=== PATIENT | male | born 1995 | race American Indian/Alaskan Native ===

== ENCOUNTER 2018-04-01 11:32 | Observation (INO) | payer BC ==
[2018-04-01] MEDS ORDERED: Oxycodone/Acetaminophen 5/325 mg Tab PO STA (11:40)
[2018-04-01] MEDS ORDERED: Oxycodone/Acetaminophen 5/325 mg Tab ONE (11:55)
[2018-04-01] MEDS ORDERED: Lidocaine 1% Inj (20ml) INFIL STA (11:58)
--- NOTE | 2018-04-01 12:20 | C.PDOC ---
History Of Present Illness 22 y/o male presents to the ER for evaluation of right wrist pain/swelling. Patient states he was playing soccer and slid, fell onto the right side of his body and craed the fall with his forearm. Associated sx includes tingling se nsation in the 4th and 5th digit. Pt denies head injury, LOC, neck pain, other injuries. Pt notes he is left hand dominant. Time Seen by Provider: 04/01/18 11:55 Chief Complaint (Nursing): Upper Extremity Problem/Injury History Per: Patient History/Exam Limitations: no limitations Onset/Duration Of Symptoms: Hrs Current Symptoms Are (Timing): Still Present Quality: "Pain" Severity: Moderate Exacerbating Factor(s): Movement Past Medical History Reviewed: Historical Data, Nursing Documentation, Vital Signs Vital Signs: Last Vital Signs Temp 97.5 F L 04/01/18 12:09 Pulse 91 H 04/01/18 12:09 Resp 20 04/01/18 12:09 BP 129/90 04/01/18 12:09 Pulse Ox 96 04/01/18 12:09 - Medical History PMH: No Chronic Diseases Family History: States: No Known Family Hx - Social History Hx Alcohol Use: Yes Hx Substance Use: No - Immunization History Hx Tetanus Toxoid Vaccination: No Hx Influenza Vaccination: Yes Hx Pneumococcal Vaccination: No Review Of Systems Constitutional: Negative for: Fever, Other (head injury ) Cardiovascular: Negative for: Chest Pain, Palpitations Respiratory: Negative for: Shortness of Breath Musculoskeletal: Positive for: Other (right wrist pain ) Neurological: Positive for: Other (tingling sensation on 4th and 5th digit of rigth hand; no LOC). Negative for: Numbness, Headache, Dizziness Physical Exam - Physical Exam Appears: Well, Non-toxic, In Acute Distress (in moderate pain ) Skin: Warm, Dry Head: Atraumatic, Normacephalic, No Tenderness, No Swelling, No Abrasion, No Laceration Eye(s): bilateral: Normal Inspection Oral Mucosa: Moist Cardiovascular: Rhythm Regular Respiratory: Normal Breath Sounds, No Rales, No Rhonchi, No Wheezing Extremity: Tenderness (mild elbow diffuse TTP; no deformity; no shoulder tenderness to palpation), Capillary Refill (<2 in all digits ), Deformity (right wrist/distal forearm dinner fork defomity, (+) TTP), No Swelling (of right elbow ) Pulses: Right Radial: Normal Neurological/Psych: Oriented x3, Normal Speech, Normal Cognition, Normal Sensation (in all digits ) ED Course And Treatment - Laboratory Results Result Diagrams: 04/01/18 13:55 04/01/18 13:55 O2 Sat by Pulse Oximetry: 96 (RA) Pulse Ox Interpretation: Normal - Other Rad Elbow X-Ray: Read By Radiologist Interpretation: Accession No. : [id number]. Patient Name / ID : HARI Stack / [id number]. Exam Date : 04/01/2018 11:58:47 ( Approved ). Study Comment : Sex / Age : M / 22Y. Creator : Dominic Hitchcock MD. Dictator : Dominic Hitchcock MD. Regulatory Consultant : Washer Cutter : Dominic Hitchcock MD. Approver2 : Report Date : 04/01/2018 12:42:24. My Comment : * . Right elbow two views. HISTORY: Pain. Comparison: None available. Findings: Please note only two views of the elbow were obtained. No evidence of acute displaced fracture dislocation. Impression: Please note only two views of the elbow were obtained. No evidence of acute displaced fracture dislocation. If pain persists, consider MRI. Right wrist X-Ray: Read By Radiologist Interpretation: Accession No. : [id number]. Patient Name / ID : HARI Stack / [id number]. Exam Date : 04/01/2018 11:57:18 ( Approved ). Study Comment : Sex / Age : M / 22Y. Creator : Dominic Hitchcock MD. Dictator : Dominic Hitchcock MD. Regulatory Consultant : Washer Cutter : Dominic Hitchcock MD. Approver2 : Report Date : 04/01/2018 12:40:37. My Comment : . Right wrist four views. HISTORY: Fracture. Comparison: None available. Findings: Transverse oblique complete fracture through the distal medullary cavity of the radius. Radial sided distraction measuring 2.3 centimeters of the distal fracture fragment. Mild comminution at the fracture site. Suggestion of a displaced ulnar styloid fracture on the oblique view. Clinical correlation. Impression: Transverse oblique complete fracture through the distal medullary cavity of the radius. Radial sided distraction measuring 2.3 centimeters of the distal fracture fragment. Mild comminution at the fracture site. Suggestion of a displaced ulnar styloid fracture on the oblique view. Clinical correlation. postreduction Xrays X-Ray: Interpreted by Me, Viewed By Me (improved alignment of distal radius, still mildly displaced. ) Progress Note: Xrays of right wrist and right elbow ordered and reviewed. Patient given PO Percocet for pain. Reduction of right distal radius fx done by me, patient tolerated well. @12:20 Dr. Dixon's service called. - Physician Consult Information Physician Contacted: Gregory Dixon Outcome Of Conversation: Discussed patient with hand surgeon, will need OR repair - to be done tomorrow morning, patient to be medicine admission. Orthopedic Time Performed: 12:15 Time Out: Side verified, Site verified, Patient ID confirmed Procedure: Fracture reduction Other:: right sided sugartong splint Location: Right, Wrist Consent obtained: Verbal Performed by: Attending Physician Diagnosis: Fracture Type: Closed, Displaced, Oblique Location: Right, Distal Bone: Radius Anesthetic Technique: Local Other:: hematoma block - approx 5ml 1% lidocaine infiltrated Anesthetic: Lidocaine 1%, Other (nitrous oxide gas ) Capillary refill: Normal Distal Sensation: Normal Distal Motor Function: Normal Capillary Refill: Normal Distal Sensation: Normal Distal Motor Function: Normal Post-reduction Radiograph: Reduced Complications: reduced, alignment improved Patient tolerated procedure: Well Disposition - Disposition - Scribe Statement The provider has reviewed the documentation as recorded by the Scribe Glenys Mackenzie Provider Attestation: All medical record entries made by the Scribe were at my direction and personally dictated by me. I have reviewed the chart and agree that the record accurately reflects my personal performance of the history, physical exam, medical decision making, and the department course for this patient. I have also personally directed, reviewed, and agree with the discharge instructions and disposition.
--- NOTE | 2018-04-01 12:44 | RAD ---
Right wrist four views HISTORY: Fracture. Comparison: None available. Findings: Transverse oblique complete fracture through the distal medullary cavity of the radius. Radial sided distraction measuring 2.3 centimeters of the distal fracture fragment. Mild comminution at the fracture site. Suggestion of a displaced ulnar styloid fracture on the oblique view. Clinical correlation. Impression: Transverse oblique complete fracture through the distal medullary cavity of the radius. Radial sided distraction measuring 2.3 centimeters of the distal fracture fragment. Mild comminution at the fracture site. Suggestion of a displaced ulnar styloid fracture on the oblique view. Clinical correlation.
--- NOTE | 2018-04-01 12:46 | RAD ---
Right elbow two views HISTORY: Pain. Comparison: None available. Findings: Please note only two views of the elbow were obtained. No evidence of acute displaced fracture dislocation. Impression: Please note only two views of the elbow were obtained. No evidence of acute displaced fracture dislocation. If pain persists, consider MRI.
[2018-04-01 13:59] LABS: BASO % 0.4 % (0.0-2.0); EOS % 0.1 % (0.0-4.0); HEMOGLOBIN 14.2 g/dL (12.0-18.0); LYMPH # 0.9 K/uL (1.0-4.3); LYMPH % 9.6 % (20.0-40.0); MEAN CELL VOLUME 80.6 fL (80.0-94.0); MEAN CORPUSCULAR HEMOGLOBIN 27.4 pg (27.0-31.0); MEAN PLATELET VOLUME 8.9 fL (7.2-11.7); MONO # 0.4 K/uL (0.0-0.8); NEUT # 8.2 K/uL (1.8-7.0); NEUT % 85.9 % (50.0-75.0); PLATELET COUNT 226 K/uL (130-400); RED CELL DISTRIBUTION WIDTH 13.5 % (11.5-14.5); WHITE BLOOD COUNT 9.5 K/uL (4.8-10.8)
[2018-04-01 14:13] LABS: INR 1.2
[2018-04-01 14:22] LABS: BLOOD UREA NITROGEN 15 mg/dL (9-20); CALCIUM 9.1 mg/dl (8.6-10.4); GFR NON-AFRICAN AMERICAN > 60
[2018-04-01 14:34] LABS: BANDS 1 % (0-2); LYMPHOCYTE 11 % (20-40); MONOCYTE 7 % (0-10); NEUTROPHIL 80 % (50-75); PLATELET ESTIMATE NORMAL (NORMAL); REACTIVE LYMPHOCYTES 1 % (0-0); TOTAL CELLS COUNTED 100
--- NOTE | 2018-04-01 14:44 | CP.PCM.HP ---
History of Present Illness - History of Present Illness History of Present Illness: This is a 22 year old male who earlier this morning was playing soccer and during a slide he out stretched his right hand and elbow to break a fall and developed pain afterwards. X ray imaging shows a transverse oblique complete fracture through the medullar cavity of the radius and radial side distraction 2.3 cm of the distal fracture fragment. There is reportedly mild comminution at the site of fracture, as well as a displaced styloud fracture noted as well. By the time we arrived to see patient he had already had a cast and sling placed. Pain was controlled he reported He reports that besides taking Wellbutrion for depression and Vistaril for sleeping - that he is in good health. Denied previous surgical history and de nied allergies. He denies pain elsewhere and denied hitting his head. Family Hx: Father has HTN Social: Occasional alcohol use, denied smoking, denied alcohol. Present on Admission - Present on Admission Any Indicators Present on Admission: Yes History of DVT/PE: No History of Uncontrolled Diabetes: No Urinary Catheter: No Decubitus Ulcer Present: No Review of Systems - EENT Eyes: absent: Blind Spots, Blurred Vision, Change in Vision Nose/Mouth/Throat: absent: Epistaxis, Nasal Congestion - Cardiovascular Cardiovascular: absent: Acrocyanosis, Chest Pain, Chest Pain at Rest, Chest Pain with Activity - Respiratory Respiratory: absent: Cough, Dyspnea, Hemoptysis, Dyspnea on Exertion - Gastrointestinal Gastrointestinal: absent: Abdominal Pain, Belching, Bloating, Change in Bowel Habits - Musculoskeletal Musculoskeletal: As Per HPI. absent: Joint Swelling, Limited Range of Motion, Loss of Height, Muscle Cramps, Neck Pain, Numbness - Neurological Neurological: absent: Abnormal Gait, Abnormal Hearing, Abnormal Movements Past Patient History - Past Social History Smoking Status: Never Smoked - CARDIAC Hx Cardiac Disorders: No - PULMONARY Hx Respiratory Disorders: No - PSYCHIATRIC Hx Substance Use: No Meds Allergies/Adverse Reactions: Allergies Allergy/AdvReac Type Severity Reaction Status Date / Time No Known Allergies Allergy Verified 04/01/18 11:42 Physical Exam - Constitutional Appears: Well, Non-toxic, No Acute Distress - Head Exam Head Exam: NORMAL INSPECTION, NORMOCEPHALIC - Eye Exam Eye Exam: EOMI, Normal appearance - ENT Exam ENT Exam: Mucous Membranes Moist - Respiratory Exam Respiratory Exam: Clear to Auscultation Bilateral, NORMAL BREATHING PATTERN - Cardiovascular Exam Cardiovascular Exam: REGULAR RHYTHM - GI/Abdominal Exam GI & Abdominal Exam: Normal Bowel Sounds, Soft - Expanded Upper Extremities Exam Right Forearm Wrist exam: dislocation - Neurological Exam Neurological exam: Alert, Oriented x3 Results - Vital Signs Recent Vital Signs: Last Vital Signs Temp 97.5 F L 04/01/18 12:09 Pulse 91 H 04/01/18 12:09 Resp 20 04/01/18 12:09 BP 129/90 04/01/18 12:09 Pulse Ox 96 04/01/18 14:34 - Labs Result Diagrams: 04/01/18 13:55 04/01/18 13:55 Labs: Laboratory Results - last 24 hr 04/01/18 04/01/18 04/01/18 13:55 13:55 13:55 WBC 9.5 RBC 5.20 Hgb 14.2 Hct 41.9 MCV 80.6 MCH 27.4 MCHC 34.0 RDW 13.5 Plt Count 226 MPV 8.9 Neut % (Auto) 85.9 H Lymph % (Auto) 9.6 L Maries % (Auto) 4.0 Eos % (Auto) 0.1 Baso % (Auto) 0.4 Neut # (Auto) 8.2 H Lymph # (Auto) 0.9 L Maries # (Auto) 0.4 Eos # (Auto) 0.0 Baso # (Auto) 0.0 Neutrophils % (Manual) 80 H Band Neutrophils % 1 Lymphocytes % (Manual) 11 L Reactive Lymphs % 1 H Monocytes % (Manual) 7 Platelet Estimate Normal RBC Morphology Normal PT 13.0 H INR 1.2 APTT 27 Sodium 140 Potassium 3.8 Chloride 103 Carbon Dioxide 25 Anion Gap 15 BUN 15 Creatinine 1.2 Est GFR ( Amer) > 60 Est GFR (Non-Af Amer) > 60 Random Glucose 97 Calcium 9.1 Blood Type 04/01/18 13:55 WBC RBC Hgb Hct MCV MCH MCHC RDW Plt Count MPV Neut % (Auto) Lymph % (Auto) Maries % (Auto) Eos % (Auto) Baso % (Auto) Neut # (Auto) Lymph # (Auto) Maries # (Auto) Eos # (Auto) Baso # (Auto) Neutrophils % (Manual) Band Neutrophils % Lymphocytes % (Manual) Reactive Lymphs % Monocytes % (Manual) Platelet Estimate RBC Morphology PT INR APTT Sodium Potassium Chloride Carbon Dioxide Anion Gap BUN Creatinine Est GFR ( Amer) Est GFR (Non-Af Amer) Random Glucose Calcium Blood Type A POSITIVE Assessment & Plan - Assessment and Plan (Free Text) Assessment: Right wrist fracture 22 year old male with a R wrist transverse oblique fracture of the radius and displaced ulnar syloid fractire. Pending OR tommorow with orthopedic surgery. He will be NPO after midnight. Reviewed lab work and CXRAY and he is ok for surgery tommorow. From report: Transverse oblique complete fracture through the distal medullary cavity of the radius. Radial sided distraction measuring 2.3 centimeters of the distal f racture fragment. Mild comminution at the fracture site. Suggestion of a displaced ulnar styloid fracture on the oblique view. History of depression: Stable, for time being will monitor
--- NOTE | 2018-04-01 15:01 | RAD ---
Chest x-ray single frontal view HISTORY: Preoperative evaluation. Comparison: None available. FINDINGS: No focal infiltrate or effusion. Heart size within normal limits. Impression: No focal infiltrate or effusion.
--- NOTE | 2018-04-01 16:06 | RAD ---
Right wrist three views HISTORY: Postreduction. COMPARISON: 04/01/2018 FINDINGS: Overlying cast obscures fine osseous detail. Again identified is a distracted transverse oblique fracture through the distal medullary cavity of the distal radius with radial sided distraction of the distal fracture fragment. Comminution at the fracture site. Lucency at the base of the ulnar styloid may represent fracture. Impression: Post reduction.
[2018-04-02] MEDS ORDERED: Oxycodone/Acetaminophen 5/325 mg Tab PO STA (00:44)
[2018-04-02 07:57] LABS: HEMOGLOBIN 13.5 g/dL (12.0-18.0); MEAN CORPUSCULAR HGB CONC 33.3 g/dL (33.0-37.0); RBC 4.99 Mil/uL (4.40-5.90); RED CELL DISTRIBUTION WIDTH 13.6 % (11.5-14.5)
[2018-04-02 08:22] LABS: ALB/GLOB RATIO 1.5 (1.0-2.1); ALBUMIN 4.6 g/dL (3.5-5.0); ALT/SGPT 36 U/L (21-72); AST/SGOT 49 U/L (17-59); BLOOD UREA NITROGEN 16 mg/dL (9-20); CALCIUM 8.6 mg/dl (8.6-10.4); GFR NON-AFRICAN AMERICAN > 60
[2018-04-02] MEDS ORDERED: HYDROmorphone 0.5 mg/0.5 ml ISec IVP PRN ×2 (09:50→12:41)
[2018-04-02] MEDS ORDERED: Midazolam 2 MG/2 ML VIAL ONE (10:07)
[2018-04-02] MEDS ORDERED: Propofol 10 mg/ml Inj (20 ML) ONE (10:07)
[2018-04-02] MEDS ORDERED: ceFAZolin 1 gm in NS 2 GM/200 ML BAG IVPB ONE (10:57)
[2018-04-02] MEDS ORDERED: ePHEDrine 50 mg/ml Inj ONE (11:38)
[2018-04-02] MEDS ORDERED: Ropivacaine 0.5% PF (20 ml) inj INJ ONE (12:20)
--- NOTE | 2018-04-02 12:23 | PCM.SURG1 ---
Surgeon's Initial Post Op Note - Surgeon's Notes Surgeon: lluvia Small Piece Cutter: william Type of Anesthesia: General LMA Pre-Operative Diagnosis: R radius fracture Operative Findings: see dictation Post-Operative Diagnosis: same Operation Performed: distal radius ORIF Specimen/Specimens Removed: none Estimated Blood Loss: EBL {In ML}: 10 Post-Op Condition: Good Date of Surgery/Procedure: 04/02/18 Time of Surgery/Procedure: 11:00
--- NOTE | 2018-04-02 12:50 | PCM.ANESB1 ---
Interscalene Block - Brachial Plexus Date of Procedure: 04/02/18 Anesthesiologist: Neeta Pre-Procedure Diagnosis: s/p ORIF of right distal radius fracture Post-Procedure Diagnosis: same Procedure Performed: Interscalene Block of Brachial Plexus Right (Right supraclavicular block of brachial plexus ) - Procedure Interscalene Block of Brachial Plexus: This procedure was explained to the patient that it is for post-operative pain management. Consent was obtained after a thorough discussion with the patient regarding the benefits and possible complications of local anesthetic block of the Brachial Plexus at the supraclavicular area. The patient was brought to the PACU and standard monitors were applied. Time out was held with the PACU nurse to confirm the appropriate block. Neuro and motor exam of right hand done along with PACU nurse and grossly intact. After applying Oxygen by nasal cannula, the patient's head was gently rotated away from the right operative arm and the anterior scalene groove was carefully palpated. The ultrasound transducer was then applied to the skin in the transverse plane and the brachial plexus was visualized lateral to the carotid artery. After identification,the anterior lateral portion of the neck and the brachial plexus at the supraclavicular level, the neck was prepped with chloraprep. At this point, a # 22 gauge Stimuplex 2 inches insulated needle was inserted and directed in a caudal and midline direction. The needle was inserted lateral to the ultrasound transducer in-plane towards the brachial plexus in a [id number] direction. Needle advancement was performed carefully under direct ultrasound visualization. After repeated negative aspiration, 2cc of 0.5% Ropivacaine were injected and this was followed with 18cc of 0.5% Ropivacaine. Under ultrasound guidance the local anesthetics were observed surrounding the trunks of the brachial plexus. The needle was removed intact and sterile dressing was applied. The patient had stable vital signs, was conscious and in no apparent distress. The patient tolerated the supraclavicular block of the bracheal plexus well with stable vital signs.
[2018-04-02] MEDS ORDERED: Pneumococcal 23-Valent Vaccine IM ONE (14:21)
[2018-04-02 14:41] VITALS: BP 134/92; PULSE 73; TEMP 98
[2018-04-02 14:42] VITALS: RESP 20; O2SAT 97
--- NOTE | 2018-04-02 14:42 | CP.PCM.DIS ---
Provider - Provider Date of Admission: 04/01/18 14:27 Attending physician: Jose Ford DO Consults: 04/01/18 13:00 Physician Consult Stat Comment: distal radius fx Consulting Provider: Gregory Dixon Consulting Physician: Gregory Dixon Reason for Consult: hand/ortho surgery Time Spent in preparation of Discharge (in minutes): 29 Hospital Course - Lab Results Lab Results: Most Recent Lab Values WBC 7.0 K/uL (4.8-10.8) 04/02/18 07:46 RBC 4.99 Mil/uL (4.40-5.90) 04/02/18 07:46 Hgb 13.5 g/dL (12.0-18.0) 04/02/18 07:46 Hct 40.4 % (35.0-51.0) 04/02/18 07:46 MCV 81.0 fL (80.0-94.0) 04/02/18 07:46 MCH 27.0 pg (27.0-31.0) 04/02/18 07:46 MCHC 33.3 g/dL (33.0-37.0) 04/02/18 07:46 RDW 13.6 % (11.5-14.5) 04/02/18 07:46 Plt Count 215 K/uL (130-400) 04/02/18 07:46 MPV 9.0 fL (7.2-11.7) 04/02/18 07:46 Neut % (Auto) 85.9 % (50.0-75.0) H 04/01/18 13:55 Lymph % (Auto) 9.6 % (20.0-40.0) L 04/01/18 13:55 Owen % (Auto) 4.0 % (0.0-10.0) 04/01/18 13:55 Eos % (Auto) 0.1 % (0.0-4.0) 04/01/18 13:55 Baso % (Auto) 0.4 % (0.0-2.0) 04/01/18 13:55 Neut # (Auto) 8.2 K/uL (1.8-7.0) H 04/01/18 13:55 Lymph # (Auto) 0.9 K/uL (1.0-4.3) L 04/01/18 13:55 Owen # (Auto) 0.4 K/uL (0.0-0.8) 04/01/18 13:55 Eos # (Auto) 0.0 K/uL (0.0-0.7) 04/01/18 13:55 Baso # (Auto) 0.0 K/uL (0.0-0.2) 04/01/18 13:55 Neutrophils % (Manual) 80 % (50-75) H 04/01/18 13:55 Band Neutrophils % 1 % (0-2) 04/01/18 13:55 Lymphocytes % (Manual) 11 % (20-40) L 04/01/18 13:55 Reactive Lymphs % 1 % (0-0) H 04/01/18 13:55 Monocytes % (Manual) 7 % (0-10) 04/01/18 13:55 Platelet Estimate Normal (NORMAL) 04/01/18 13:55 RBC Morphology Normal 04/01/18 13:55 PT 13.0 SECONDS (9.7-12.2) H 04/01/18 13:55 INR 1.2 04/01/18 13:55 APTT 27 SECONDS (21-34) 04/01/18 13:55 Sodium 140 mmol/L (132-148) 04/02/18 07:44 Potassium 4.1 mmol/L (3.6-5.2) 04/02/18 07:44 Chloride 105 mmol/L (98-107) 04/02/18 07:44 Carbon Dioxide 26 mmol/L (22-30) 04/02/18 07:44 Anion Gap 14 (10-20) 04/02/18 07:44 BUN 16 mg/dL (9-20) 04/02/18 07:44 Creatinine 1.3 mg/dL (0.8-1.5) 04/02/18 07:44 Est GFR ( Amer) > 60 04/02/18 07:44 Est GFR (Non-Af Amer) > 60 04/02/18 07:44 Random Glucose 91 mg/dL (75-110) 04/02/18 07:44 Calcium 8.6 mg/dl (8.6-10.4) 04/02/18 07:44 Total Bilirubin 1.4 mg/dL (0.2-1.3) H 04/02/18 07:44 AST 49 U/L (17-59) 04/02/18 07:44 ALT 36 U/L (21-72) 04/02/18 07:44 Alkaline Phosphatase 88 U/L (38-126) 04/02/18 07:44 Total Protein 7.6 g/dL (6.3-8.3) 04/02/18 07:44 Albumin 4.6 g/dL (3.5-5.0) 04/02/18 07:44 Globulin 3.0 gm/dL (2.2-3.9) 04/02/18 07:44 Albumin/Globulin Ratio 1.5 (1.0-2.1) 04/02/18 07:44 Blood Type A POSITIVE 04/01/18 13:55 Antibody Screen Negative 04/01/18 13:55 - Hospital Course Hospital Course: Patient is status post distal radius fracture ORIF this morning 04/02/18. He reports doing well, denied shortness of breath and denies chest pain. His arm is currently in sling and with splint and jennifer wrap. His morning lab work is stable as well. There is an RX for tramadol for pain. Patient will be following up with orthopedic surgery [facility] for follow up. As mentioned previously this is a 22 year old male who earlier this morning was playing soccer and during a slide he out stretched his right hand and elbow to break a fall and developed pain afterwards. X ray imaging shows a transverse oblique complete fracture through the medullar cavity of the radius and radial side distraction 2.3 cm of the distal fracture fragment. There is reportedly mild comminution at the site of fracture, as well as a displaced styloud fracture noted as well. Discharge Exam - Head Exam Head Exam: NORMAL INSPECTION, NORMOCEPHALIC - Eye Exam Eye Exam: EOMI, Normal appearance - ENT Exam ENT Exam: Mucous Membranes Moist - Respiratory Exam Respiratory Exam: Clear to PA & Lateral, NORMAL BREATHING PATTERN, UNREMARKABLE - Cardiovascular Exam Cardiovascular Exam: REGULAR RHYTHM - GI/Abdominal Exam GI & Abdominal Exam: Normal Bowel Sounds, Unremarkable - Extremities Exam Additional comments: S/P ORIF. Arm is in sling - Neurological Exam Neurological exam: Alert, Oriented x3 - Psychiatric Exam Psychiatric exam: Normal Affect, Normal Mood - Skin Skin Exam: Normal Color, Warm Discharge Plan - Discharge Medications Prescriptions: traMADol [Ultram] 50 mg PO BID #40 tab - Follow Up Plan Condition: GOOD Disposition: HOME/ ROUTINE Instructions: Open Reduction and Internal Fixation Surgery (DC) Referrals: Gregory Dixon MD [Medical Doctor] -
[2018-04-02] MEDS ORDERED: Morphine 4 MG/ML VIAL IVP PRN (14:45)
--- NOTE | 2018-04-02 15:46 | RAD ---
Right forearm three views History: Postoperative follow-up. Comparison: 04/01/2018 Findings: Plate and screw fixation of a distal radial fracture. Additional ununited ossific density at the ulnar aspect of the fracture site. Overlying cast obscures fine osseous detail. Impression: Postsurgical changes.
--- NOTE | 2018-04-03 00:14 | CON ---
DATE: 04/01/2018 REASON FOR CONSULTATION: Right forearm trauma. HISTORY OF PRESENT ILLNESS: A 22-year-old right-hand dominant male, who presents to [facility] Room with complaint of right forearm pain, trauma, and deformity. The patient was playing soccer today and sustained a fall on the ground, had immediate deformity of the distal third forearm. He presents to the emergency room for evaluation. I was consulted for further evaluation and treatment. Initial x-rays confirmed displaced distal third radial shaft fracture. Closed reduction was attempted in the emergency room; however, the patient continued to have deformity on postreduction films. PHYSICAL EXAMINATION: RIGHT FOREARM: There was gross deformity and dorsal displacement of distal forearm. Skin is intact. Compartments are soft and compressible. Distal pulses +2. The patient has some numbing sensation at the ulnar 2 digits; however, has active flexion and extension of all of his fingers. No pain over the elbow. X-rays; AP, lateral, and oblique were seen and reviewed, showed displaced distal third radial shaft fracture with shortening and dorsal angulation. Fracture pattern is spiral with mild comminution. ASSESSMENT: Right distal third radial shaft fracture. PLAN: Due to the instability and deformity of the fracture, I recommended surgery. The patient will be admitted to undergo preoperative evaluation and be taken to the operating room for open reduction and internal fixation. Risks and benefits of the procedure were explained. The patient understands the above risks and elected to proceed. Gregory Dixon MD
--- NOTE | 2018-04-03 00:36 | OP ---
PROCEDURE DATE: 04/02/2018 SURGEON: Gregory Dixon MD PURCHASING ASSISTANT: Maty Sullivan MD PREOPERATIVE DIAGNOSIS: Displaced right distal third radial shaft fracture. POSTOPERATIVE DIAGNOSES: 1. Displaced right distal third radial shaft fracture. 2. Instability of distal radioulnar joint. PROCEDURE: Radial shaft open reduction and internal fixation of volar wrist plate and closed reduction and treatment of distal radial and ulnar joint with long-arm plaster splint, [id number]. ANESTHESIA: General. ESTIMATED BLOOD LOSS: 10 mL. COMPLICATIONS: None. DISPOSITION: Stable to recovery room. DESCRIPTION OF PROCEDURE: The patient was brought to the operating room and placed supine on the operating room table. After general anesthesia was given and prophylactic antibiotics, a well-padded non-sterile tourniquet was placed on the patient's right upper extremity. The entire extremity was then prepped and draped in standard surgical fashion. A time-out was performed. Volar Enrike incision over the distal radius was outlined. The arm was elevated and exsanguinated, and tourniquet was inflated to 250 mmHg. Incision was made through the skin only. All superficial veins were cauterized. Dissection was carried down to identifying the fascia over the flexor carpi radialis tendon. The fascia was incised. The flexor carpi radialis tendon was retracted. The deep fascia was then identified and incised. A blunt dissection was performed with retraction of the flexor pollicis longus muscle belly and tendon. The pronator quadratus muscle was then identified. The fracture site was identified. It was proximal to the pronator quadratus muscle. The pronator quadratus muscle was then incised and lifted off the radial attachment in an L-shaped fashion. The fracture site was then inspected and debrided using curettes, rongeurs, irrigation, and suction. This was a long oblique spiral fracture. Open reduction was then performed with traction and rotation. The fracture was held provisionally with reduction clamp. Then, a 2.7 mm screw was used in a lack technique across the fracture site to hold it provisionally together. Appropriate size drill was used with appropriate size of a length screw. After this, a long volar radial shaft Synthes plate was selected and placed over the volar radius. It was provisionally held in place with K-wires. Fluoroscopic images to confirm the well-reduced radial shaft fracture and good placement of the plate. Plate was then fixed in a compression mode using standard AO technique with combination of locking and non-locking screws. Screws were of appropriate length. No abnormal penetration of the DRUJ joint or the distal radial carpal joint. Next, the DRUJ was checked with test in both supination, pronation, and neutral rotation. There was slight instability in the DRUJ. We planned on fixing this with casting. The wound was then copiously irrigated and closed using 2-0 Vicryl for subcutaneous layer, followed by 4-0 Monocryl running suture for the skin layer. Steri-Strips were applied. Tourniquet was deflated. Sterile dressings were applied of fluffs, 4 x 4, and Segundo. A long-arm sugar tong plaster splint was placed with full supination and rotation to treat the slight disability of the DRUJ. The patient had good capillary refills and sensation to the fingers after reversal of anesthesia. The patient returned to recovery room in excellent condition. Gregory Dixon MD
--- NOTE | 2018-04-03 20:00 | CARD ---
APPROVED REPORT Date of service: 04/01/2018 EKG Measurement Heart [id number] <Conclusion> Normal sinus rhythm with sinus arrhythmia Early repolarization Normal ECG
[2018-04-04] MEDS ORDERED: Pneumococcal 23-Valent Vaccine IM ONE (10:00)
== END 2018-04-02 15:18 | disposition home or self-care (01) ==
LOC: C.ER 11:32 → C.9E 14:27 → C.3T 22:51
PROVIDERS: ADMIT Hospitalist; ATTEND Hospitalist
DX: S52.351A Displaced comminuted fracture of shaft of radius, right arm, initial encounter for closed fracture (principal); M25.331 Other instability, right wrist; F32.9 Major depressive disorder, single episode, unspecified; Z23 Encounter for immunization; Z79.899 Other long term (current) drug therapy; W18.39XA Other fall on same level, initial encounter; Y93.66 Activity, soccer; Y92.322 Soccer field as the place of occurrence of the external cause
CPT/HCPCS: 25525; 36415; 64415; 71045; 73080; 73090; 73110; 80048; 80053; 85025; 85027; 85610; 85730; 86850; 86900; 90732; 93005; 99283; G0009; G0378; J0690; J2250; J2704; J3010